=== PATIENT | female | born 2005 | race Caucasian/White ===

== ENCOUNTER 2024-02-01 13:43 | Emergency (ER) | payer OTHER ==
[~2024-02-01] VITALS: Ht 157.5 cm; Wt 57.7 kg
[2024-02-01 13:44] VITALS: TEMP 96.3
[2024-02-01] MEDS ORDERED: ONDA-282 PO (13:58)
[2024-02-01] MEDS ORDERED: FAMO20TA PO (13:58)
[2024-02-01 14:51] LABS: BASO % 0.6 % (0.0-1.0); EOS % 0.4 % (0.0-3.0); HEMATOCRIT 41.3 % (36.0-47.0); HEMOGLOBIN 14.3 g/dl (12.0-15.5); LYMPH # 1.7 10^3/uL (1.5-5.0); LYMPH % 35.6 % (24.0-44.0); MEAN CORPUSCULAR HEMOGLOBIN 33.3 pg (27.0-33.0); MEAN CORPUSCULAR HGB CONC 34.6 g/dl (32.0-36.5); MEAN CORPUSCULAR VOLUME 96.3 fl (80.0-96.0); MONO # 0.2 10^3/uL (0.0-0.8); MONO % 3.5 % (2.0-8.0); NEUTROPHILS # 2.9 10^3/uL (1.5-8.5); NEUTROPHILS % 59.7 % (36.0-66.0); PLATELET COUNT, AUTOMATED 249 10^3/uL (150-450); RED BLOOD COUNT 4.29 10^6/uL (4.00-5.40); WHITE BLOOD COUNT 4.9 10^3/uL (4.0-10.0)
[2024-02-01 15:24] LABS: ALBUMIN 4.4 G/DL (3.2-5.2); ALKALINE PHOSPHATASE 65 U/L (46-116); ALT/SGPT 30 U/L (7.0-40); AST/SGOT 23 U/L (<34); BILIRUBIN,TOTAL 1.5 MG/DL (0.3-1.2); BLOOD UREA NITROGEN 11 MG/DL (9-23); CALCIUM LEVEL 9.7 MG/DL (8.5-10.1); CARBON DIOXIDE LEVEL 24 MMOL/L (20-31); CHLORIDE LEVEL 105 MMOL/L (98-107); CREATININE FOR GFR 0.99 MG/DL (0.55-1.30); GLUCOSE, FASTING 76 MG/DL (60-100); POTASSIUM SERUM 3.8 MMOL/L (3.5-5.1); SODIUM LEVEL 137 MMOL/L (136-145); TOTAL PROTEIN 8.1 G/DL (5.7-8.2)
[2024-02-01 15:31] LABS: HCG, SERUM QUALITATIVE NEGATIVE (NEGATIVE)
[2024-02-01] MEDS: ONDANSETRON 4MG ORAL DISINTEGRATING TAB PO ONE (18:11)
[2024-02-01 18:26] VITALS: BP 114/73; O2SAT 99
== END 2024-02-01 18:38 | disposition home or self-care (01) ==
LOC: M ED 13:43
DX: R11.2 Nausea with vomiting, unspecified (principal); F17.200 Nicotine dependence, unspecified, uncomplicated

== ENCOUNTER → 2024-10-06 | Outpatient (CLI) | payer OTHER ==
[~2024-10-06] MED LIST: FAMO20TA PO; ONDA-282 PO
== END ==
LOC: M PLAIMG 10:55
PROVIDERS: ATTEND Physician Assistant
DX: M54.6 Pain in thoracic spine (principal); M54.50 Low back pain, unspecified

== ENCOUNTER → 2025-02-13 | Outpatient (CLI) | payer OTHER, BC | LOC: M PLALAB 12:52 | PROVIDERS: ATTEND Physician Assistant | DX: M41.35 Thoracogenic scoliosis, thoracolumbar region (principal) ==

== ENCOUNTER → 2025-04-06 | Outpatient (CLI) | payer BC, OTHER ==
[~2025-04-06] MED LIST changes: +BENZ200C70 PO; +CYCL5TAB4 PO; +FLUO-290 PO; +NORE1TAB58 PO
== END ==
LOC: M PLAIMG 07:13
PROVIDERS: ATTEND Physician Assistant
DX: M51.16 Intervertebral disc disorders with radiculopathy, lumbar region (principal); M51.17 Intervertebral disc disorders with radiculopathy, lumbosacral region

== ENCOUNTER 2025-04-24 06:35 | Emergency (ER) | payer OTHER, BC ==
[~2025-04-24] VITALS: Ht 162.6 cm; Wt 60.6 kg
[~2025-04-24 06:35] MED LIST changes: -BENZ200C70 PO; -CYCL5TAB4 PO; -FLUO-290 PO; -NORE1TAB58 PO
[2025-04-24] MEDS ORDERED: FLUO-290 PO (06:43)
[2025-04-24] MEDS ORDERED: CYCL5TAB4 PO (06:43)
[2025-04-24] MEDS ORDERED: NORE1TAB58 PO (06:43)
[2025-04-24 07:47] LABS: BASO # 0.0 10^3/uL (0.0-0.2); BASO % 0.6 % (0.0-1.0); EOS # 0.1 10^3/uL (0.0-0.5); EOS % 2.5 % (0.0-3.0); LYMPH # 2.2 10^3/uL (1.5-5.0); LYMPH % 42.7 % (24.0-44.0); MONO # 0.4 10^3/uL (0.0-0.8); MONO % 7.7 % (2.0-8.0); NEUTROPHILS # 2.4 10^3/uL (1.5-8.5); NEUTROPHILS % 46.3 % (36.0-66.0); PLATELET COUNT, AUTOMATED 186 10^3/uL (150-450)
[2025-04-24 08:06] LABS: ALT/SGPT 16.0 U/L (7.0-40); AST/SGOT 24.0 U/L (<34); CALCIUM LEVEL 8.5 MG/DL (8.5-10.1); CARBON DIOXIDE LEVEL 25.0 MMOL/L (20-31); CHLORIDE LEVEL 105.0 MMOL/L (98-107); CREATININE FOR GFR 0.96 MG/DL (0.55-1.30); GLOMERULAR FILTRATION RATE 86.3 (>60); POTASSIUM SERUM 4.1 MMOL/L (3.5-5.1); SODIUM LEVEL 139.0 MMOL/L (136-145)
[2025-04-24] MEDS ORDERED: ONDA-282 PO (08:41)
[2025-04-24] MEDS ORDERED: BENZ200C70 PO (08:41)
[2025-04-24 08:49] VITALS: BP 114/71; TEMP 98.1; O2SAT 98
== END 2025-04-24 09:01 | disposition home or self-care (01) ==
LOC: M ED 06:35
DX: R10.9 Unspecified abdominal pain (principal); B34.1 Enterovirus infection, unspecified; Z79.899 Other long term (current) drug therapy; Z91.018 Allergy to other foods